=== PATIENT | male | born 1995 | race Caucasian/White ===

== ENCOUNTER → 2020-09-28 | Outpatient (CLI) | payer BC, MEDICAID ==
[2013-03-20 19:50] VITALS: BP 143/89
[~2020-09-28] MED LIST: CLONIDINE0.2 MG PO; CONCERTA36 MG PO; LEXAPRO 10MG10 MG PO; MINOCYCLINE HC100 MG PO; MIRTAZAPINE15 M1 PO; SINGULAIR10 MG PO
== END ==
LOC: RAD 08:00
DX: R79.89 Other specified abnormal findings of blood chemistry (principal)